=== PATIENT | female | born 1965 | race Caucasian/White ===

== ENCOUNTER 2018-10-24 07:10 | Outpatient (CLI) | payer BC ==
--- NOTE | 2018-10-24 12:20 | Ultrasound Report ---
Reason: UNSPECIFIED ABDOMINAL PAIN Procedure Date: 10/24/2018 Accession Number: [id number] / [id number] Procedure: US - Pelvic Complete CPT Code: FULL RESULT: EXAM: PELVIC ULTRASOUND EXAM DATE: 10/24/2018 08:00 AM. CLINICAL HISTORY: Unspecified abdominal pain. COMPARISON: None. TECHNIQUE: Realtime transabdominal pelvic scan performed to identify the uterus and adnexa and as an overview of other pelvic structures, with static image documentation. FINDINGS: Uterus: 6.9 x 3.3 x 3.8 cm, volume 45 cc. Anteverted position. Normal overall size and echotexture. Masses: None. Endometrium: 5 mm. Subjectively, the endometrium looks heterogeneous with echogenic foci, possibly due to reported history of prior endometrial ablation in 2014. Limited visualization due to transabdominal technique only with no abnormal vascularity detected by color Doppler. Cervix: Unremarkable. Right Ovary: 1.6 x 1.0 x 2.1 cm, volume 1.8 cc. Normal echotexture and blood flow. Left Ovary: 2.0 x 1.9 x 1.5 cm, volume 3.0 cc. Normal echotexture and blood flow. Free Fluid: None. Other: None. IMPRESSION: Limited evaluation of the endometrium due to absence of transvaginal examination. [facility]
--- NOTE | 2018-10-24 12:21 | Ultrasound Report ---
Reason: UNSPECIFIED ABDOMINAL PAIN Procedure Date: 10/24/2018 Accession Number: [id number] / [id number] Procedure: US - Abdomen Complete CPT Code: FULL RESULT: EXAM: ABDOMEN ULTRASOUND EXAM DATE: 10/24/2018 08:56 AM. CLINICAL HISTORY: Unspecified abdominal pain. COMPARISON: None. TECHNIQUE: Real-time scanning was performed with static images obtained. FINDINGS: Liver: Normal in size and echotexture. Right lobe of the liver measures at least 13.1 cm. Main portal vein flow: Hepatopetal. Gallbladder: Normal. No stones, wall thickening, or sonographic Hargrove's sign. Biliary System: Common bile duct measures 6 mm. No intrahepatic or extrahepatic ductal dilatation. Pancreas: Visualized portion is unremarkable. Kidneys: Right: 10.1 cm longitudinally. Normal. No contour-deforming mass, stones, or hydronephrosis. Left: 10.5 cm longitudinally. Normal. No contour-deforming mass, stones, or hydronephrosis. Spleen: 10.1 cm. Normal in size and echotexture. Aorta and Inferior Vena Cava: Unremarkable. Other: None. IMPRESSION: Normal abdomen ultrasound. [facility]
== END 2018-10-24 07:11 | disposition home or self-care (01) ==
LOC: DI 07:10
PROVIDERS: ATTEND Nurse Practitioner Family
DX: R10.9 Unspecified abdominal pain (principal)
CPT/HCPCS: 76700; 76856

== ENCOUNTER 2020-05-16 13:20 | Outpatient (CLI) | payer BC | END 2020-05-16 13:21 | disposition home or self-care (01) | LOC: COV 13:20 | PROVIDERS: ATTEND Family Medicine | DX: R05 Cough (principal); R53.83 Other fatigue; J02.9 Acute pharyngitis, unspecified; R09.81 Nasal congestion; Z20.828 Contact with and (suspected) exposure to other viral communicable diseases ==

== ENCOUNTER 2020-10-21 14:50 | Outpatient (CLI) | payer BC | END 2020-10-21 14:51 | disposition home or self-care (01) | LOC: COV 14:50 | PROVIDERS: ATTEND Family Medicine | DX: R05 Cough (principal); R07.0 Pain in throat; R09.81 Nasal congestion; J34.89 Other specified disorders of nose and nasal sinuses; Z20.822 Contact with and (suspected) exposure to COVID-19 ==

== ENCOUNTER 2022-10-23 16:12 | Outpatient (CLI) | payer BC ==
[~2022-10-23 16:12] MED LIST: DIATRIZOATE MEGLU/DIATRIZO SOD 30 ML BOTTLE PO ONE; iohexoL-300 100 ML VIAL ONE
[2022-10-23] MEDS ORDERED: iohexoL-300 100 ML VIAL IVP ONE (18:07)
[2022-10-23] MEDS ORDERED: DIATRIZOATE MEGLU/DIATRIZO SOD 30 ML BOTTLE PO ONE (18:08)
--- NOTE | 2022-10-23 18:17 | CT Report ---
PROCEDURE: ABDOMEN/PELVIS W INDICATIONS: LOWER ABD PAIN CONTRAST: 100mL Omni 300 TECHNIQUE: After the administration of IV and oral contrast, 5 mm thick sections acquired from the diaphragms to the symphysis. 5 mm thick coronal and sagittal reformats were acquired. For radiation dose reducti on, the following was used: automated exposure control, adjustment of mA and/or kV according to vic ent size. COMPARISON: Abdomen ultrasound 10/24/2018 FINDINGS: Image quality: Excellent. ABDOMEN: Lung bases: Lung bases are clear. Heart size is normal. Solid organs: Liver demonstrates mild steatosis. The spleen is normal in size and enhancement. Gall bladder is unremarkable Biliary system is non dilated. Pancreas enhances normally. No adrenal nodu les. Kidneys demonstrate normal size and enhancement, without hydronephrosis. Peritoneum and bowel: Bowel loops are nonobstructive. Minimal appearance of scattered small bowel th ickening. Scattered colonic diverticula are present without inflammatory change.. No free fluid or a ir. Nodes and vessels: No retroperitoneal or mesenteric adenopathy by size criteria. Aorta and inferior vena cava are normal in size. Miscellaneous: Trace fat-containing inguinal hernia.. PELVIS: Genitourinary: Bladder wall thickness is normal. Miscellaneous: No inguinal hernias or adenopathy. Bones: No suspicious bony lesions. No vertebral body compression fractures. IMPRESSION: There are scattered appearance of thickened small bowel loops overall nonspecific. This could be refl ective of enteritis. Diverticulosis. Reviewed by: Yue Lackey MD on 10/23/2022 6:15 PM PST Approved by: Yue Lackey MD on 10/23/2022 6:15 PM PST Station ID: [id number]
== END 2022-10-23 16:13 | disposition home or self-care (01) ==
LOC: DI 16:12
PROVIDERS: ATTEND Registered Nurse
DX: R10.30 Lower abdominal pain, unspecified (principal); K57.30 Diverticulosis of large intestine without perforation or abscess without bleeding
CPT/HCPCS: 74177; Q9963; Q9967

== ENCOUNTER 2024-04-09 09:04 | Outpatient (CLI) | payer OTHER, BC ==
--- NOTE | 2024-04-09 10:47 | XRAY Report ---
PROCEDURE: Forearm RT INDICATIONS: RIGHT WRIST JOINT PAIN TECHNIQUE: 2 views of the forearm were acquired. COMPARISON: None. FINDINGS: Bones: No acute displaced fracture of the radial shaft or ulnar shaft. Ulnar plate/screw fixation is present. Soft tissues: No suspicious calcifications. IMPRESSION: Postsurgical changes of the ulna. No acute radiographic abnormality of the ulnar or radial shafts. Wr ist findings are separately dictated. Reviewed by: Ousmane López MD on 04/09/2024 10:46 AM PDT Approved by: Ousmane López MD on 04/09/2024 10:46 AM PDT Station ID: [id number]
--- NOTE | 2024-04-09 10:48 | XRAY Report ---
PROCEDURE: Wrist 3+V RT INDICATIONS: RIGHT WRIST JOINT PAIN TECHNIQUE: 3 views of the wrist were acquired. COMPARISON: None. FINDINGS: Bones: Mild scattered degenerative changes surrounding the carpal bones. No acute displaced fracture or dislocation. Partially evaluated ulnar fixation hardware in place. Soft tissues: No suspicious calcifications. IMPRESSION: Mild degenerative changes. No acute radiographic abnormality. If there is high concern for further de rangement, consider MRI evaluation. Reviewed by: Ousmane López MD on 04/09/2024 10:47 AM PDT Approved by: Ousmane López MD on 04/09/2024 10:47 AM PDT Station ID: [id number]
== END 2024-04-09 09:05 | disposition home or self-care (01) ==
LOC: DI 09:04
PROVIDERS: ATTEND Emergency Medicine
DX: M25.531 Pain in right wrist (principal); M19.031 Primary osteoarthritis, right wrist; Z96.7 Presence of other bone and tendon implants